=== PATIENT | male | born 1990 | race Asian ===

== ENCOUNTER 2017-12-05 08:21 | Day surgery (SDC) | payer OTHER ==
[~2017-12-05 08:21] MED LIST: Buffered Lidocaine 0.9% SYRIN* 5 ML/SYR SYRINGE INTRADERM ONE; Dexamethasone IV* 4 MG/ML 1 ML (4 MG) IV SLOW PU ONE; Dexamethasone IV* 4 MG/ML 1 ML (4 MG) ONE; Famotidine IV* 10 MG/ML 2 ML (20 mg) IV ONE; Famotidine IV* 10 MG/ML 2 ML (20 mg) ONE
[2017-12-05] MEDS ORDERED: Oxymetazoline 0.05% NASAL SPR* 15 ML BTL ONE (09:44)
[2017-12-05] MEDS ORDERED: Lidocaine 2% EPI 1:200000 MPF*10-20 ML VIAL ONE (09:44)
[2017-12-05] MEDS ORDERED: oxyCODONE/Acetamin 5/325 MG* TAB PO PRN (09:50)
[2017-12-05] MEDS ORDERED: Naloxone* 0.4 MG/ML 1 ML VIAL IV PRN (09:50)
[2017-12-05] MEDS ORDERED: fentaNYL* 50 MCG/ML 2 ML VIAL (100 MCG VIAL) IV PRN (09:50)
[2017-12-05] MEDS ORDERED: HYDROcodone/ACETAMIN 5-325 MG* 1 TAB PO PRN (09:50)
[2017-12-05] MEDS ORDERED: PROCHLORPERAZINE INJ 5 MG/ML 2 ML VIAL IV PRN (09:50)
[2017-12-05] MEDS ORDERED: fentaNYL* 50 MCG/ML 2 ML VIAL (100 MCG VIAL) ONE (09:57)
[2017-12-05] MEDS ORDERED: Lidocaine 2% PF * 5 ML VIAL ONE (09:57)
[2017-12-05] MEDS ORDERED: Propofol* 10 MG/ML 20 ML BTL IV PUSH ONE (09:57)
[2017-12-05] MEDS ORDERED: Ondansetron INJ* 2 MG/ML VIAL ONE (10:16)
[2017-12-05] MEDS ORDERED: PROCHLORPERAZINE INJ 5 MG/ML 2 ML VIAL ONE (10:51)
[2017-12-05 11:31] VITALS: BP 128/86
--- NOTE | 2017-12-06 01:02 | OP ---
DATE OF OPERATION: 12/05/17 - [facility] DATE OF : 89 SURGEON: Santos Feliciano M.D. PRE-OP DIAGNOSES: Deviated nasal septum, hypertrophied nasal turbinates, nasal dyspnea. POST-OP DIAGNOSES: Deviated nasal septum, hypertrophied nasal turbinates, nasal dyspnea. OPERATIVE PROCEDURE: Septoplasty and submucosal resection of interior turbinates. BRIEF HISTORY: This 27-year-old gentleman with nasal dyspnea, had tried nasal steroids, continued to have nasal dyspnea symptoms, elected for surgical management. DESCRIPTION OF PROCEDURE: The patient was brought to the operating room. General anesthesia was given, the patient was intubated with LMA. Nose was initially decongested with Afrin placed pledges. Subsequently, 2% lidocaine with epinephrine was infiltrated in both sides of the septum and into the inferior turbinate mucosa. Right hemitransfixion incision was created. Mucoperichondrial flap was elevated. Quadrangular cartilage was disarticulated along the vomer ethmoidal complex and along the maxillary crest. Portion of the crest was removed and a portion of the vomer ethmoidal complex was removed. The quadrangular cartilage was then scored on its concave surface, replaced in the midline and secured in place with multiple mattress sutures of chromic. We then secured the cartilage with Abdi splints which were secured with 2-0 silk. Next, we turned our attention to the inferior turbinates. Submucosal resection was carried out elevating the submucosa and resecting out some portions of the bone, cauterizing the edges of the bone, and opening of the mucosal incision. Once hemostasis was obtained on both sides, the patient was awakened and sent to recovery room in stable condition. Instrument and sponge counts correct. Blood loss minimal. [id number]/[facility] #: [id number] MTDD
== END 2017-12-05 12:10 | disposition home or self-care (01) ==
LOC: OR 08:21
PROVIDERS: ATTEND Otolaryngology
DX: J34.2 Deviated nasal septum (principal); J34.3 Hypertrophy of nasal turbinates; J31.0 Chronic rhinitis
CPT/HCPCS: A9270-GY; J0780; J1100; J2405; J2704; J3010

== ENCOUNTER → 2018-11-11 08:34 | Day surgery (SDC) | payer OTHER ==
--- NOTE | 2018-11-07 18:05 | HP ---
CC: Dr. Kamar Rao, [facility] * ADMITTING HISTORY AND PHYSICAL: DATE OF ADMISSION: 11/11/18 ADMITTING DIAGNOSIS: Right renal calculus. PLANNED PROCEDURE: Shockwave lithotripsy, right renal calculus. SURGEON: Dr. Smith. 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 At that time, he was also noted to have an approximately 1 cm calculus in the mid to lower pole of the right kidney and is now being in brought for shockwave lithotripsy of the same. PAST MEDICAL HISTORY: Significant for the above-described recent right ureteral calculus. PAST SURGICAL HISTORY: Significant for septoplasty. MEDICATIONS ON ADMISSION: None. ALLERGIES: No known drug allergies. FAMILY HISTORY: Negative for stones. SOCIAL HISTORY: He is a nonsmoker. REVIEW OF SYSTEMS: He is, otherwise, in excellent health. There is no history of chest pain or shortness of breath. There is no history of diabetes mellitus or any other major systemic illness. PHYSICAL EXAMINATION GENERAL: Reveals a healthy-appearing young gentleman. VITAL SIGNS: Blood pressure is 110/66, pulse 80 per minute and regular, oxygen saturation 98% on room air, temperature 96.5. LUNGS: Clear bilaterally. CARDIOVASCULAR: Regular rate and rhythm. S1, S2. ABDOMEN: Soft without masses. There is mild right flank tenderness. IMPRESSION: A 28-year-old gentleman with an approximately 1 cm calculus in the right kidney. I have discussed the procedure of shockwave lithotripsy including possible risks of bleeding, infection, incomplete fragmentation, and obstructing fragments. He appears to understand and wishes to proceed as planned. PLAN: Plan is shockwave lithotripsy, right renal calculus. [id number]/[facility] #: [id number] [facility]
[~2018-11-11 08:34] MED LIST changes: -Buffered Lidocaine 0.9% SYRIN* 5 ML/SYR SYRINGE INTRADERM ONE; +Buffered Lidocaine 1% SYRIN* 1 ML/SYRINGE INTRADERM ONE; +DiMENhydriNATE IV* 50 MG/ML VIAL IV PUSH PRN; +Furosemide IV* 10 MG/ML 2 ML VIAL (20 MG) ONE; +Lactated Ringers 1000 ML Bag* 1,000 ML IV SCH; +Midazolam* 1 MG/ML 2 ML VIAL (2 MG) ONE; +Naloxone* 0.4 MG/ML 1 ML VIAL IV PRN; +cefTRIAXone(*) 2 GM ADDV.VIAL IVPB ONE; +fentaNYL* 50 MCG/ML 2 ML VIAL (100 MCG VIAL) IV PRN
--- NOTE | 2018-11-11 12:24 | OP ---
DATE OF OPERATION: 11/11/18 - [facility] DATE OF : [birth year] SURGEON: Dorian Smith MD. ANESTHESIOLOGIST: Dr. Stout. ANESTHESIA: General. PRE-OP DIAGNOSIS: Right renal calculus. POST-OP DIAGNOSIS: Right renal calculus. OPERATIVE PROCEDURE: Shockwave lithotripsy of right renal calculus. COMPLICATIONS: None. POSTOPERATIVE CONDITION: Stable. 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 I discussed the procedure of shockwave lithotripsy, and he is now being brought in for shockwave lithotripsy for the same. DESCRIPTION OF PROCEDURE: After induction of general anesthesia, the patient was placed on the lithotripsy table in supine position. The calculus in the right kidney was identified using fluoroscopy and shockwave lithotripsy was commenced at a rate of 60 shocks per minute. After the initial 300 shocks, there was a pause in lithotripsy for several minutes in an effort to minimize any potential trauma to the kidney. Lithotripsy was then resumed and periodic imaging revealed good localization and fragmentation, and a total of 1800 shocks were administered. The patient tolerated the procedure satisfactorily and was transferred back to the recovery area in stable condition. [id number]/[facility] #: [id number] MTDPaul
[2018-11-11 13:25] VITALS: BP 133/84
== END | disposition home or self-care (01) ==
LOC: OR 08:34
PROVIDERS: ATTEND Urology
DX: N20.0 Calculus of kidney (principal)
CPT/HCPCS: 74018; J0696; J1100; J1940; J2250